=== PATIENT | female | born 1930 | race Caucasian/White ===

== ENCOUNTER 2018-06-21 14:19 | Inpatient (IN) | payer MEDICAID ==
[~2018-06-21] VITALS: Ht 149.9 cm; Wt 60.3 kg
[2018-06-21 14:23] VITALS: BP 131/68
--- NOTE | 2018-06-21 14:28 | NUR ---
PT TRIAGED IN ED BED 6 REPORT TO DEDRA BOSS. EDMD AWARE OF PT STATUS
[2018-06-21] MEDS ORDERED: NACL 0.9% 500 ML IV ONE ×2 (14:30)
--- NOTE | 2018-06-21 14:40 | NUR ---
PT. BIB FAMILY DUE TO NUMBNESS OF THE CHIN ON AND OFF FOR A WEEK. SON STATES " SHE HAS BEEN COMPLAINING OF NUMBNESS OF HER CHIN FOR A WEEK ON AND OFF. PT. CAN SPEAK IN CLEAR AND FULL SENTENCES NO SLURRING NOTED. SYMETRICAL SMILE. PAU. HAND BOOM BOSS 3+. ABLE TO RAISE LEFT AND R LEG EQUALLY. PUPILS EQUAL ROUND AND REACTIVE BILAT. 3MM. 4/10 NUMBNESS PAIN ON CHIN THAT IS INTERMITTENT. PATIENT REPORTS " SOMETIMES ITS HARD FOR ME TO TALK. ER MD NOTIFIED. WILL CONTINUE TO MONITOR. RR EVEN AND UNLABORED. AAOX 4. FAMILY AT BEDSIDE. SAFETY PRECAUTIONS INITIATED.
[2018-06-21 15:11] LABS: BASOPHILS % (AUTO) 0.1 % (0.0-2.0); EOSINOPHILS % (AUTO) 0.3 % (0.0-4.0); HEMATOCRIT 45.6 % (36-48); HEMOGLOBIN 14.9 g/dL (12.0-16.0); LYMPHOCYTES # (AUTO) 1.4 K/uL (2.5-16.5); LYMPHOCYTES % (AUTO) 15.7 % (20.5-51.1); MEAN CORPUSCULAR HEMOGLOBIN 29 pg (27-31); MEAN CORPUSCULAR HGB CONC 33 g/dL (33-37); MEAN CORPUSCULAR VOLUME 89.3 fL (80-94); MONOCYTES # (AUTO) 0.5 K/uL (0.8-1.0); MONOCYTES % (AUTO) 5.5 % (1.7-9.3); NEUTROPHILS # (AUTO) 6.9 K/uL (1.8-7.7); NEUTROPHILS % (AUTO) 78.4 % (42.2-75.2); PLATELET COUNT (AUTO) 192 K/uL (140-450); RED BLOOD CELL COUNT(AUTO) 5.11 MIL/uL (4.20-5.40); RED CELL DISTRIBUTION WIDTH 14.2 % (11.6-13.7); WHITE BLOOD COUNT (AUTO) 8.8 K/uL (4.8-10.8)
[2018-06-21 15:21] LABS: ANION GAP 11.9 (8-16); CARBON DIOXIDE 27.6 mmol/L (21-32); CHLORIDE 104 mmol/L (98-107); CREATININE 0.5 mg/dL (0.6-1.3); GLUCOSE 149 mg/dL (74-106); POTASSIUM 4.5 mmol/L (3.5-5.1); SODIUM SERUM 139 mmol/L (136-145); UREA NITROGEN, BLOOD 20 mg/dL (7-18)
[2018-06-21 15:27] LABS: ALBUMIN 3.2 g/dL (3.4-5.0); ASPARTATE AMINOTRANSFERASE 12 U/L (15-37); TOTAL BILIRUBIN 0.3 mg/dL (0.0-1.0)
[2018-06-21 15:35] LABS: PROTHROMBIN TIME 9.9 secs (10.8-13.4)
--- NOTE | 2018-06-21 15:45 | NUR ---
PT. RESTING COMFORTABLY IN BED , RR EVEN AND UNLABORED. FAMILY AT BEDSIDE. WILL CONTINUE TO MONITOR.
[2018-06-21 15:52] LABS: APPEARANCE,URINE CLEAR (CLEAR); BILIRUBIN,URINE NEGATIVE (NEGATIVE); BLOOD, URINE NEGATIVE (NEGATIVE); COLOR,URINE YELLOW (YELLOW); LEUKOCYTE ESTERASE ,URINE NEGATIVE (NEGATIVE); NITRITE, URINE NEGATIVE (NEGATIVE); UGLUCOSE NEGATIVE (NEGATIVE)
[2018-06-21] MEDS ORDERED: ZOLPIDEM 5 MG TAB PO PRN (16:15)
[2018-06-21] MEDS ORDERED: LORazepam 2 MG/ML VIAL IM/IVP PRN (16:15)
[2018-06-21] MEDS ORDERED: HYDROcodone/APAP 5/325 MG 1 TAB TAB PO PRN (16:15)
[2018-06-21] MEDS ORDERED: DOCUSATE SODIUM 100 MG GELCAP PO PRN (16:15)
[2018-06-21] MEDS ORDERED: MORPHINE SULFATE 2 MG/ML SYR IVP PRN (16:15)
[2018-06-21] MEDS ORDERED: ONDANSETRON 4 MG/2 ML VIAL IM/IVP PRN (16:15)
[2018-06-21] MEDS ORDERED: ACETAMINOPHEN 325 MG TAB PO PRN (16:15)
--- NOTE | 2018-06-21 16:44 | NUR ---
Patient will be admitted to care of DR. FRANCO . Admited to TELE . Will go to room 124A. Belongings list completed. Report to KARYN FLOWERS .
--- NOTE | 2018-06-21 16:45 | NUR ---
PT ADMITTED FROM ER. RECEIVED REPORT FROM WILFRED BOSS. PT ALERT & AWAKE, AMBULATED TO TOILET WITH CANE WITH FAIR BALANCE. PT DENIES ANY PAIN, RESP EVEN & UNLABORED. PT ORIENTED TO ROOM & UNIT. PLAN OF CARE REVIEWED. BOX GLUER STARTED. FALL PRECAUTIONS INITIATED. WILL CONTINUE TO MONITOR.
[2018-06-21 16:50] VITALS: BP 138/75
--- NOTE | 2018-06-21 16:50 | NUR ---
DR. BIRMINGHAM AT BEDSIDE TO ASSESS PT. SON AT BEDSIDE TRANSLATING FOR PT.
[2018-06-21 16:59] LABS: MAGNESIUM 2.2 mg/dL (1.8-2.4); PHOSPHORUS 3.1 mg/dL (2.5-4.9)
[2018-06-21] MEDS ORDERED: MECLIZINE 25 MG TAB PO PRN (17:15)
[2018-06-21] MEDS ORDERED: DEXTROSE 50% 50 ML SYR IVP PRN (17:30)
[2018-06-21] MEDS ORDERED: INSULIN LISPRO SLIDING SCALE 100 UNITS/ML VIAL SUBQ PRN (17:30)
[2018-06-21] MEDS ORDERED: FURO-572 PO (17:36)
[2018-06-21] MEDS ORDERED: LOSA50TA39 PO (17:36)
[2018-06-21] MEDS: NACL 0.9% 1,000 ML IV SCH (18:21)
--- NOTE | 2018-06-21 19:25 | NUR ---
REPORT GIVEN TO BLUEPRINT READER NURSE. PT ALERT, VERBAL, NO SIGNS OF DISTRESS.
--- NOTE | 2018-06-21 19:26 | NUR ---
RECEIVED REPORT FROM DAY SHIFT NURSE LIONEL- RN. PT AOX4- FAMILY AT BEDSIDE, PORTUGUESE SPEAKING, AMBULATORY WITH CANE, ON ROOM AIR WITH IV SITE RIGHT AC 22G. DISCUSSED PLAN OF CARE AND PT VERBALIZED UNDERSTANDING. NO S/S OF RESPIRATORY DISTRESS OR DISCOMFORT NOTED AT THIS TIME. BED IN LOWEST POSITION, BOTH SIDE RAILS UP, BREAKS ON. BED SIDE TABLE AND CALL LIGHT ARE WITHIN REACH. WILL CONTINUE TO MONITOR.
[2018-06-21 20:00] VITALS: BP 147/72
--- NOTE | 2018-06-21 20:00 | NUR ---
VITAL SIGNS TAKEN AND TOLERATED WELL. BP ELEVATED- WILL REASSESS BEFORE MEDICATING. NO S/S OF RESPIRATORY DISTRESS OR DISCOMFORT NOTED AT THIS TIME. WILL CONTINUE TO MONITOR.
[2018-06-21] MEDS: BLOOD GLUCOSE MONITORING 1 DEV DEV FS SCH (20:12)
--- NOTE | 2018-06-21 20:15 | NUR ---
BLOOD GLUCOSE 123- NO INSULIN COVERAGE NEEDED.
--- NOTE | 2018-06-21 20:30 | NUR ---
PB DECREASED. WILL CONTINUE TO MONITOR.
--- NOTE | 2018-06-21 22:00 | NUR ---
PT SLEEPING IN BED. NO S/S OF RESPIRATORY DISTRESS OR DISCOMFORT NOTED AT THIS TIME. WILL CONTINUE TO MONITOR.
[2018-06-22] VITALS (9 sets, daily range): BP systolic 113–161; BP diastolic 48–68
--- NOTE | 2018-06-22 | NUR ---
VITAL SIGNS TAKEN AND TOLERATED WELL. BP ELEVATED-WILL REASSESS. NO S/S OF RESPIRATORY DISTRESS OR DISCOMFORT NOTED AT THIS TIME. WILL CONTINUE TO MONITOR.
--- NOTE | 2018-06-22 00:30 | NUR ---
PB DECREASED TO NORMAL RANGE.
--- NOTE | 2018-06-22 02:00 | NUR ---
PT SLEEPING IN BED AT THIS TIME. NO S/S OF RESPIRATORY DISTRESS OR DISCOMFORT NOTED AT THIS TIME. WILL CONTINUE TO MONITOR.
--- NOTE | 2018-06-22 04:00 | NUR ---
PT SLEEPING AT THIS TIME. NO S/S OF RESPIRATORY DISTRESS OR DISCOMFORT NOTED AT THIS TIME. WILL CONTINUE TO MONITOR.
[2018-06-22] MEDS: BLOOD GLUCOSE MONITORING 1 DEV DEV FS SCH ×4 (06:12→20:24)
--- NOTE | 2018-06-22 06:13 | NUR ---
BLOOD GLUCOSE 77- NO INSULIN COVERAGE NEEDED. SNACKS PROVIDED. WILL CONTINUE TO MONITOR.
[2018-06-22 06:40] LABS: BASOPHILS % (AUTO) 0.1 % (0.0-2.0); EOSINOPHILS # (AUTO) 0.1 K/uL (0-0.4); EOSINOPHILS % (AUTO) 0.6 % (0.0-4.0); HEMATOCRIT 42.5 % (36-48); HEMOGLOBIN 13.9 g/dL (12.0-16.0); LYMPHOCYTES # (AUTO) 1.4 K/uL (2.5-16.5); LYMPHOCYTES % (AUTO) 17.2 % (20.5-51.1); MEAN CORPUSCULAR HEMOGLOBIN 29 pg (27-31); MEAN CORPUSCULAR HGB CONC 33 g/dL (33-37); MEAN CORPUSCULAR VOLUME 89.7 fL (80-94); MONOCYTES # (AUTO) 0.6 K/uL (0.8-1.0); MONOCYTES % (AUTO) 7.2 % (1.7-9.3); NEUTROPHILS % (AUTO) 74.9 % (42.2-75.2); PLATELET COUNT (AUTO) 159 K/uL (140-450); RED BLOOD CELL COUNT(AUTO) 4.74 MIL/uL (4.20-5.40); RED CELL DISTRIBUTION WIDTH 14.1 % (11.6-13.7); WHITE BLOOD COUNT (AUTO) 8.1 K/uL (4.8-10.8)
[2018-06-22 06:54] LABS: ANION GAP 7.2 (8-16); CARBON DIOXIDE 30.1 mmol/L (21-32); CHLORIDE 108 mmol/L (98-107); CREATININE 0.6 mg/dL (0.6-1.3); GLUCOSE 96 mg/dL (74-106); POTASSIUM 4.3 mmol/L (3.5-5.1); SODIUM SERUM 141 mmol/L (136-145); UREA NITROGEN, BLOOD 16 mg/dL (7-18)
[2018-06-22 06:56] LABS: PHOSPHORUS 3.6 mg/dL (2.5-4.9)
--- NOTE | 2018-06-22 07:15 | NUR ---
ENDORSED PT CARE TO DAY SHIFT NURSE DIMAS-RN FOR CONTINUITY OF CARE.
--- NOTE | 2018-06-22 07:16 | NUR ---
RECEIVED REPORT FROM PILE DRIVING SETTER NURSE AT BEDSIDE FOR CONTINUITY OF CARE. PT AOX4, ROMANSH SPEAKING, AMBULATORY WITH CANE, ON ROOM AIR WITH IV SITE RIGHT AC 22G WITH NS RUNNING AT 60 ML/HR WELL. DISCUSSED PLAN OF CARE AND PT VERBALIZED UNDERSTANDING. PATIENT AMBULATED TO BATHROOM WITH 1 PERSON ASSIST TO VOID. UPDATED BOARD. NO S/S OF RESPIRATORY DISTRESS OR DISCOMFORT NOTED AT THIS TIME. SAFETY PRECAUTION IN PLACE, BED IN LOWEST POSITION, BOTH SIDE RAILS UP, BED ALARM ON, BED SIDE TABLE AND CALL LIGHT ARE WITHIN REACH. WILL CONTINUE TO MONITOR PATIENT.
--- NOTE | 2018-06-22 07:32 | NUR ---
DOCTORS MAKING THEIR ROUNDS. WILL WAIT FOR NEW ORDERS. ORTHOSTATIC VS TAKEN: 0721 - SUPINE BP: 130/68 HR: 69 0725 - SITTING BP: 144-66 HR: 71 0728 - STANDING BP: 161/59 HR: 82 PATIENT SITTING UP IN BED EATING BREAKFAST, NO SIGNS OF DISTRESS OR SOB NOTED ON ROOM AIR. PATIENT DENIES PAIN. SAFETY PRECAUTION IN PLACE, CALL LIGHT WITHIN REACH, BED ALARM ON, WILL CONTINUE TO MONITOR PATIENT.
[2018-06-22] MEDS: LOSARTAN 50 MG TAB PO SCH (08:34)
[2018-06-22] MEDS: FUROSEMIDE 20 MG TAB PO SCH (08:34)
--- NOTE | 2018-06-22 08:34 | NUR ---
ORDERED MEDICATIONS GIVEN. PATIENT TOLERATED IT WELL. NO SIGNS OF DISTRESS OR SOB NOTED ON ROOM AIR. PATIENT DENIES PAIN. PATIENT AMBULATED TO BATHROOM WITH 1 PERSON ASSIST AND VOIDED. PATIENT ASSISTED BACK TO BED. PATIENT NOW RESTING IN BED, SAFETY PRECAUTIONS IN PLACE, NO SIGNS OF DISTRESS OR SOB NOTED ON ROOM AIR. WILL CONTINUE TO MONITOR PATIENT.
[2018-06-22 08:44] LABS: T4 (THYROXINE) 7.9 ug/dL (4.5-12.0)
--- NOTE | 2018-06-22 08:50 | NUR ---
PATIENT HAS BEEN SCREENED AND CATEGORIZED HIGH NUTRITION RISK. PATIENT WILL BE SEEN WITHIN 1-2 DAYS OF ADMISSION. 06/22/18 06/23/[address]
[2018-06-22] MEDS: NACL 0.9% 1,000 ML IV SCH ×2 (08:55→20:25)
[2018-06-22] MEDS ORDERED: LOSARTAN 50 MG TAB PO SCH (09:00)
[2018-06-22 09:23] LABS: CHOL/HDL RATIO 2.8 (1-4.5)
--- NOTE | 2018-06-22 09:25 | NUR ---
MARIUSZ LORENZANA AND HIS AT PATIENT'S BEDSIDE. PATIENT RESTING IN BED, WILL CONTINUE TO MONITOR PATIENT.
--- NOTE | 2018-06-22 11:45 | NUR ---
PHYSICAL THERAPY IN TO SEE THE PATIENT. WILL WAIT FOR THEIR ASSESSMENT.
--- NOTE | 2018-06-22 12:31 | NUR ---
BLOOD SUGAR 75, NO COVERAGE NEEDED, PATIENT CURRENTLY SITTING IN CHAIR BY SIDE OF BED EATING LUNCH. MARIUSZ LORENZANA AT BEDSIDE. WILL CONTINUE TO MONITOR PATIENT.
--- NOTE | 2018-06-22 14:46 | NUR ---
06/22/18 RD INITIAL ASSESSMENT COMPLETED PLEASE REFER TO NUTRITION ASSESSMENT UNDER CARE ACTIVITY FOR ESTIMATED NUTRITIONAL NEEDS. 1. CONTINUE CARDIAC DIET TOLERATED 2. PROVIDED CARDIAC NUTRITION EDUCATION TO PATIENT AND FAMILY 3. RD TO FOLLOW-UP 3-5 DAYS, MODERATE RISK RAFFY SAMANIEGO, RD
--- NOTE | 2018-06-22 15:15 | NUR ---
PATIENT GETTING US DONE. WILL WAIT FOR RESULTS.
--- NOTE | 2018-06-22 16:45 | NUR ---
BLOOD SUGAR 118, NO COVERAGE NEEDED. R AC IV SITE INFILTRATED, IV REMOVED, IV CATHETER INTACT, MINIMAL BLOOD NOTED. NEW IV INSERTED IN R HAND #24 G, PATENT, INTACT, AND ASYMPTOMATIC, INFUSING IVF WELL. PATIENT TOLERATED IT WELL. WILL CONTINUE TO MONITOR PATIENT.
--- NOTE | 2018-06-22 19:25 | NUR ---
REPORT GIVEN TO WOOD GLUER NURSE AT BEDSIDE FOR CONTINUITY OF CARE. PATIENT IN STABLE CONDITION. MARIUSZ LORENZANA AT BEDSIDE.
--- NOTE | 2018-06-22 19:26 | NUR ---
RECEIVED REPORT FROM DAY SHIFT NURSE DIMAS- RN. PT AOX4- FAMILY AT BEDSIDE, DIVEHI SPEAKING, AMBULATORY WITH CANE, ON ROOM AIR WITH IV SITE RIGHT HAND 22G. DISCUSSED PLAN OF CARE AND PT VERBALIZED UNDERSTANDING. NO S/S OF RESPIRATORY DISTRESS OR DISCOMFORT NOTED AT THIS TIME. BED IN LOWEST POSITION, BOTH SIDE RAILS UP, BREAKS ON. BED SIDE TABLE AND CALL LIGHT ARE WITHIN REACH. WILL CONTINUE TO MONITOR.
--- NOTE | 2018-06-22 19:30 | NUR ---
BLOOD GLUCOSE 165- INSULIN COVERAGE NEEDED.
--- NOTE | 2018-06-22 20:00 | NUR ---
VITAL SIGNS TAKEN AND TOLERATED WELL. NO S/S OF RESPIRATORY DISTRESS OR DISCOMFORT NOTED AT THIS TIME. WILL CONTINUE TO MONITOR.
--- NOTE | 2018-06-22 20:35 | NUR ---
INSULIN PROVIDED INDICATED BY SLIDING SCALE. PT TOLERATED WELL. NEW BAG OF IVF HUNG. NO S/S OF RESPIRATORY DISTRESS OR DISCOMFORT NOTED AT THIS TIME. WILL CONTINUE TO MONITOR.
--- NOTE | 2018-06-22 22:00 | NUR ---
PT RESTING IN BED. NO S/S OF RESPIRATORY DISTRESS OR DISCOMFORT NOTED AT THIS TIME. WILL CONTINUE TO MONITOR.
[2018-06-23] VITALS: BP 111/48
--- NOTE | 2018-06-23 | NUR ---
PT SLEEPING IN BED. VITAL SIGNS TAKEN AND TOLERATED WELL. NO S/S OF RESPIRATORY DISTRESS OR DISCOMFORT NOTED AT THIS TIME. WILL CONTINUE TO MONITOR.
--- NOTE | 2018-06-23 02:00 | NUR ---
PT CONTINUES TO SLEEP. NO S/S OF RESPIRATORY DISTRESS OR DISCOMFORT NOTED AT THIS TIME. WILL CONTINUE TO MONITOR.
[2018-06-23 04:00] VITALS: BP 120/55
--- NOTE | 2018-06-23 04:00 | NUR ---
VITAL SIGNS TAKEN AND TOLERATED WELL. NO S/S OF RESPIRATORY DISTRESS OR DISCOMFORT NOTED AT THIS TIME. WILL CONTINUE TO MONITOR.
--- NOTE | 2018-06-23 04:21 | NUR ---
ASSISTED PT WITH FINDING HER UPPER DENTURES THAT FELL ON THE FLOOR. DENTURES INTACT. PROVIDED PT WITH DENTURE CUP. ASSISTED PT BACK IN BED. NO S/S OF RESPIRATORY DISTRESS OR DISCOMFORT NOTED AT THIS TIME. WILL CONTINUE TO MONITOR.
[2018-06-23] MEDS: BLOOD GLUCOSE MONITORING 1 DEV DEV FS SCH ×2 (05:37→11:30)
--- NOTE | 2018-06-23 05:37 | NUR ---
BLOOD GLUCOSE 95- NO INSULIN COVERAGE NEEDED.
--- NOTE | 2018-06-23 06:00 | NUR ---
PT SLEEPING IN BED AT THIS TIME. NO S/S OF RESPIRATORY DISTRESS OR DISCOMFORT NOTED AT THIS TIME. WILL CONTINUE OT MONITOR.
--- NOTE | 2018-06-23 07:00 | NUR ---
RECEIVED PATIENT REPORT AT BEDSIDE. PATIENT AWAKE, ALERT AND ORIENTED. NO S/S OF DISTRESS. DENIES PAIN AT THIS TIME. PATIENT ON TELE MONITORING. BED LOWERED WITH CALL LIGHT WITHIN REACH. WILL CONTINUE TO MONITOR
[2018-06-23 07:07] LABS: BASOPHILS % (AUTO) 0.2 % (0.0-2.0); EOSINOPHILS # (AUTO) 0.1 K/uL (0-0.4); EOSINOPHILS % (AUTO) 0.8 % (0.0-4.0); HEMATOCRIT 42.2 % (36-48); HEMOGLOBIN 13.9 g/dL (12.0-16.0); LYMPHOCYTES # (AUTO) 1.2 K/uL (2.5-16.5); MEAN CORPUSCULAR HEMOGLOBIN 29 pg (27-31); MEAN CORPUSCULAR HGB CONC 33 g/dL (33-37); MONOCYTES # (AUTO) 0.6 K/uL (0.8-1.0); MONOCYTES % (AUTO) 7.5 % (1.7-9.3); NEUTROPHILS # (AUTO) 5.9 K/uL (1.8-7.7); NEUTROPHILS % (AUTO) 75.5 % (42.2-75.2); PLATELET COUNT (AUTO) 156 K/uL (140-450); RED BLOOD CELL COUNT(AUTO) 4.74 MIL/uL (4.20-5.40); RED CELL DISTRIBUTION WIDTH 14.2 % (11.6-13.7); WHITE BLOOD COUNT (AUTO) 7.8 K/uL (4.8-10.8)
[2018-06-23 07:15] LABS: MAGNESIUM 1.6 mg/dL (1.8-2.4); PHOSPHORUS 3.2 mg/dL (2.5-4.9)
[2018-06-23 07:18] LABS: ANION GAP 9.3 (8-16); CARBON DIOXIDE 29.5 mmol/L (21-32); CHLORIDE 107 mmol/L (98-107); CREATININE 0.4 mg/dL (0.6-1.3); GLUCOSE 95 mg/dL (74-106); POTASSIUM 3.8 mmol/L (3.5-5.1); SODIUM SERUM 142 mmol/L (136-145); UREA NITROGEN, BLOOD 19 mg/dL (7-18)
--- NOTE | 2018-06-23 07:24 | NUR ---
ENDORSED PT CARE TO DAY SHIFT NURSE DAVONTE FOR CONTINUITY OF CARE.
[2018-06-23 08:00] VITALS: BP 138/48
[2018-06-23] MEDS ORDERED: MAG SULF 2000 MG/WATER PREMIX 50 ML IV ONE (08:50)
--- NOTE | 2018-06-23 09:45 | NUR ---
ASSISTED PATIENT TO THE BATHROOM. PATIENT VOIDED
[2018-06-23] MEDS: LOSARTAN 50 MG TAB PO SCH (09:55)
[2018-06-23] MEDS: FUROSEMIDE 20 MG TAB PO SCH (09:55)
[2018-06-23] MEDS: MAGNESIUM SULFATE 1GM in DEXTROSE 5% 100 ML PREMIX IV SCH ×2 (09:57→11:25)
--- NOTE | 2018-06-23 10:13 | NUR ---
DR BIRMINGHAM SPOKE WITH PATIENT'S SON AND DISCUSSED PLAN OF CARE
--- NOTE | 2018-06-23 10:45 | NUR ---
PATIENT SEEN BY PT
[2018-06-23 12:00] VITALS: BP 11/54
--- NOTE | 2018-06-23 13:45 | NUR ---
PATIENT DISCHARGED TO HOME. DISCHARGE INSTRUCTIONS GIVEN. PATIENT'S SON VERBALIZED UNDERSTANDING. IV LINE DISCONTINUED. TELE LEADS TAKEN OFF. PATIENT LEFT WITH ALL HER BELONGINGS AND DISCHARGE PAPERS. PATIENT LEFT IN STABLE CONDITION
== END 2018-06-23 14:35 | disposition home or self-care (01) | DRG 48 ==
LOC: MED 14:19 → MTU 16:20
PROVIDERS: ADMIT General Practice; ATTEND General Practice
DX: G90.9 Disorder of the autonomic nervous system, unspecified (principal); N17.0 Acute kidney failure with tubular necrosis; E11.9 Type 2 diabetes mellitus without complications; E44.1 Mild protein-calorie malnutrition; E05.90 Thyrotoxicosis, unspecified without thyrotoxic crisis or storm; M81.0 Age-related osteoporosis without current pathological fracture; Z90.49 Acquired absence of other specified parts of digestive tract; I11.9 Hypertensive heart disease without heart failure; Z68.26 Body mass index [BMI] 26.0-26.9, adult; E87.8 Other disorders of electrolyte and fluid balance, not elsewhere classified; Z91.81 History of falling; E83.42 Hypomagnesemia
CPT/HCPCS: 36415; 70450; 71045; 76536; 80048; 80053; 81003; 82948; 83036; 83605; 83690; 83735; 83880; 84100; 84134; 84436; 84439; 84443; 84479; 84484; 85025; 85610; 85730; 87040; 87081; 87086; 93005; 93880; 93925; 93970; 96360; 97110; 97116; 97530; 99285; J1815; J7030; Q0092

== ENCOUNTER 2019-03-22 20:48 | Emergency (ER) | payer MEDICAID, OTHER ==
[~2019-03-22] VITALS: Ht 147.3 cm; Wt 45.4 kg
[~2019-03-22 20:48] MED LIST: FURO-572 PO; LOSA50TA66 PO
--- NOTE | 2019-03-22 21:02 | NUR ---
Pt w/c assisted to bed 8.
--- NOTE | 2019-03-22 21:06 | NUR ---
PT CAME INTO ER WITH C/O EDEMA TO THE LOWER EXTREMETIES X 1 MONTH. PT STATED THAT SHE HAS BEEN HAVING SOME PAIN, PAIN LEVEL 4/10 AT THIS TIME. PT ALSO STATED THAT SHE HAS BEEN HAVING SOME NUMBNESS TO THE LOWER EXTREMETIES. PT HAS SOME PITTING EDEMA 3 + ON EXTREMETIES. NO DISCHARGE OF FLUID NOTICED. PEDAL PULSE ARE STRONG BILATERAL. PT STATED SHE HAS BEEN TAKING MEDICATION FOR WATER RETENTION. PT HAS SOME DISCOLOARTION TO THE SKIN TO THE LOWER EXTREMETIES. SKIN IS INTACT. PT IS ABLE TO AMBULATED WITH A MEADOWS INDEPENDENTLY. PT IS A/OX4, TO PERSON, PLACE AND TIME. PT CURRENTLY LIVES WITH SON. PT WAS RECENTLY IN [place] ABOUT A MONTH AGO. ER MD MADE AWARE OF STATUS. SAFETY MEASURES IN PLACE, BED RAILS UP X 2.
[2019-03-22 21:09] VITALS: BP 152/77
[2019-03-22] MEDS ORDERED: ALEN70TA9 PO (21:13)
[2019-03-22] MEDS ORDERED: ASPI-1718 PO (21:13)
[2019-03-22] MEDS ORDERED: ALBU0.0912 IH (21:13)
[2019-03-22] MEDS ORDERED: LOSA25TA43 PO (21:13)
[2019-03-22] MEDS ORDERED: FERR325E14 PO (21:13)
[2019-03-22] MEDS ORDERED: OMEP20TC10 PO (21:13)
--- NOTE | 2019-03-22 21:21 | NUR ---
Dr. Bourne evaluating patient at bedside.
--- NOTE | 2019-03-22 21:30 | NUR ---
X-Ray at bedside.
[2019-03-22 21:55] LABS: BASOPHILS % (AUTO) 0.4 % (0.0-2.0); EOSINOPHILS # (AUTO) 0.1 K/uL (0-0.4); EOSINOPHILS % (AUTO) 1.2 % (0.0-4.0); HEMATOCRIT 48.8 % (36-48); HEMOGLOBIN 15.6 g/dL (12.0-16.0); LYMPHOCYTES # (AUTO) 1.3 K/uL (2.5-16.5); LYMPHOCYTES % (AUTO) 25.3 % (20.5-51.1); MEAN CORPUSCULAR HEMOGLOBIN 29 pg (27-31); MEAN CORPUSCULAR HGB CONC 32 g/dL (33-37); MEAN CORPUSCULAR VOLUME 88.8 fL (80-94); MONOCYTES # (AUTO) 0.4 K/uL (0.8-1.0); MONOCYTES % (AUTO) 8.8 % (1.7-9.3); NEUTROPHILS # (AUTO) 3.2 K/uL (1.8-7.7); NEUTROPHILS % (AUTO) 64.3 % (42.2-75.2); PLATELET COUNT (AUTO) 154 K/uL (140-450); RED BLOOD CELL COUNT(AUTO) 5.49 MIL/uL (4.20-5.40); RED CELL DISTRIBUTION WIDTH 16.5 % (11.6-13.7)
[2019-03-22 22:06] LABS: ANION GAP 7.4 (8-16); CARBON DIOXIDE 30.6 mmol/L (21-32); CHLORIDE 108 mmol/L (98-107); CREATININE 0.5 mg/dL (0.6-1.3); GLUCOSE 90 mg/dL (74-106); SODIUM SERUM 142 mmol/L (136-145); UREA NITROGEN, BLOOD 21 mg/dL (7-18)
--- NOTE | 2019-03-22 22:07 | NUR ---
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 ER MADE AWARE
[2019-03-22 22:08] LABS: PROTHROMBIN TIME 10.3 secs (10.8-13.4)
[2019-03-22 22:12] LABS: ALBUMIN 2.8 g/dL (3.4-5.0); ASPARTATE AMINOTRANSFERASE 18 U/L (15-37); TOTAL BILIRUBIN 0.3 mg/dL (0.0-1.0)
[2019-03-22 22:25] LABS: APPEARANCE,URINE CLEAR (CLEAR); BILIRUBIN,URINE NEGATIVE (NEGATIVE); BLOOD, URINE NEGATIVE (NEGATIVE); COLOR,URINE YELLOW (YELLOW); LEUKOCYTE ESTERASE ,URINE TRACE (NEGATIVE); NITRITE, URINE NEGATIVE (NEGATIVE); PH,URINE 5.5 (5.0-9.0); UGLUCOSE NEGATIVE (NEGATIVE)
[2019-03-22 22:37] LABS: RBC,URINE 0-5 /HPF (0-5); WBC,URINE 0-5 /HPF (0-5)
--- NOTE | 2019-03-22 22:40 | NUR ---
PT TAKEN TO CT
[2019-03-22] MEDS ORDERED: FUROSEMIDE 40 MG/4 ML VIAL IVP ONE (23:50)
--- NOTE | 2019-03-23 00:32 | NUR ---
PT AMBULATED TO THE RESTROOM WITH ASSISTANCE BY HER MEADOWS AND HER SON. PT TOLERATED WELL.
[2019-03-23 01:15] VITALS: BP 152/77
--- NOTE | 2019-03-23 01:15 | NUR ---
Patient discharged with v/s stable. Written and verbal after care instructions given and explained. Patient verbalized understanding. Ambulatory with MEADOWS, AND ASSISTANCE FROM SON. All questions addressed prior to discharge. Advised to follow up with PMD.
== END 2019-03-23 01:15 | disposition home or self-care (01) ==
LOC: MED 20:48
DX: R60.0 Localized edema (principal); E04.9 Nontoxic goiter, unspecified; I10 Essential (primary) hypertension; Z79.82 Long term (current) use of aspirin; Z79.899 Other long term (current) drug therapy
CPT/HCPCS: 36415; 71045; 71250; 80053; 81001; 83605; 83880; 84484; 85025; 85610; 85730; 87040; 87086; 93005; 96374; 99284; J1940